=== PATIENT | male | born 1990 | race Caucasian/White ===

== ENCOUNTER 2019-08-23 22:40 | Emergency (ER) | payer OTHER ==
[~2019-08-23] VITALS: Ht 180.3 cm; Wt 105.2 kg
[2019-08-23 22:47] VITALS: Ht 180.3 cm; Wt 105.2 kg
[2019-08-24 03:01] VITALS: BP 136/86
== END 2019-08-24 03:01 | disposition home or self-care (01) ==
LOC: ED 22:40
DX: S81.012A Laceration without foreign body, left knee, initial encounter (principal); W18.30XA Fall on same level, unspecified, initial encounter; Y93.89 Activity, other specified; Y92.89 Other specified places as the place of occurrence of the external cause; Y99.8 Other external cause status
CPT/HCPCS: 90715; J2001